=== PATIENT | male | born 1950 | race Caucasian/White ===

== ENCOUNTER → 2016-05-30 | Outpatient (CLI) | payer OTHER ==
--- NOTE | 2016-05-30 16:53 | US ---
EXAMINATION TYPE: US carotid duplex BILAT DATE OF EXAM: 05/30/2016 4:34 PM COMPARISON: Prior carotid ultrasound May 25, 2015. CLINICAL HISTORY: R93.8 abnormal carotid compare to previous. EXAM MEASUREMENTS: RIGHT: Peak Systolic Velocity (PSV) cm/sec ----- Right CCA: 176 ----- Right ICA: 77.4 ----- Right ECA: 151 ICA/CCA ratio: 0.43 RIGHT: End Diastole cm/sec ----- Right CCA: 31.4 ----- Right ICA: 21.7 ----- Right ECA: 19.9 LEFT: Peak Systolic Velocity (PSV) cm/sec ----- Left CCA: 77.6 ----- Left ICA: 93.6 ----- Left ECA: 53.6 ICA/CCA ratio: 1.2 LEFT: End Diastole cm/sec ----- Left CCA: 22.3 ----- Left ICA: 26.7 ----- Left ECA: 9.5 VERTEBRALS (direction of flow): Right Vertebral: Antegrade Left Vertebral: Antegrade Moderate plaque with no significant velocity increases seen in bilateral ICA's Grayscale images redemonstrate moderate eccentric plaque at bilateral carotid bulbs. Velocity measure ments and ratios in visualized portion of both internal carotid arteries remains within normal limits . No significant change from prior. IMPRESSION: Moderate atherosclerotic change redemonstrated bilaterally without hemodynamically signi ficant stenosis clearly seen in either internal carotid artery.
== END | disposition home or self-care (01) ==
LOC: RADUSWWP 15:46
PROVIDERS: ATTEND Otolaryngology
DX: I65.23 Occlusion and stenosis of bilateral carotid arteries (principal)
CPT/HCPCS: 93880

== ENCOUNTER → 2016-07-16 | Outpatient (CLI) | payer MEDICARE, OTHER ==
[2016-07-16 14:22] LABS: Non-African American GFR(MDRD) >60 (>60 ml/min/1.73 sqM)
--- NOTE | 2016-07-16 14:37 | XR ---
EXAMINATION TYPE: XR orbit detect foreign body DATE OF EXAM: 07/16/2016 2:32 PM COMPARISON: NONE HISTORY: 66-year-old male MRI clearance, history of metal working. TECHNIQUE: 3 views FINDINGS: There is no retained metallic foreign body seen within either orbit or within the visualized face. So me calcifications intracranially likely ideal gland calcifications. Slight leftward nasal septal belinda ation noted. IMPRESSION: No retained metal within the orbits. Clear for MRI.
--- NOTE | 2016-07-16 15:34 | MR ---
EXAMINATION TYPE: MR brain wo/w con DATE OF EXAM: 07/16/2016 3:29 PM COMPARISON: NONE HISTORY: Dizziness, hx throat ca 9 yrs ago CONTRAST: Patient received 17 mL intravenous MultiHance gadolinium contrast. Multiplanar and multispin-echo imaging of the brain was performed . Pre and post contrast enhanced i mages are obtained. The ventricles, basal cisterns and sulci overlying the cerebral convexities are moderate enlarged. There is evidence of moderate periventricular white matter ischemic demyelination. Remote deep white matter insults are also noted. No acute edema is seen on diffusion weighted imaging. There is no evidence for midline shift or mass effect. Acute intracranial hemorrhage or extra-axial collection is not evident. No enhancing lesions are seen. The paranasal sinuses and mastoid air cells are well-aerated. IMPRESSION: Age-related atrophic and chronic small vessel ischemic change. No acute intracranial process at this time. No enhancing lesions are seen.
== END | disposition home or self-care (01) ==
LOC: RADMRIMAIN 13:56
PROVIDERS: ATTEND Psychiatry & Neurology Neurology
DX: G31.9 Degenerative disease of nervous system, unspecified (principal); I67.82 Cerebral ischemia; Z13.89 Encounter for screening for other disorder
CPT/HCPCS: 82565; 70030; 70553; 36415; A9577

== ENCOUNTER 2017-05-04 10:46 | Inpatient (IN) | payer MEDICARE, OTHER ==
[2017-05-04] MEDS ORDERED: NOREPINEPHRIN 4 MG-0.9% NS PMX 4 MG/250 ML ML IV ONE (11:10)
--- NOTE | 2017-05-04 11:19 | ED ---
General Adult HPI - General Chief complaint: Cardiac Arrest/CPR Stated complaint: cardiac arrest Source: EMS, RN notes reviewed Mode of arrival: EMS Limitations: altered mental status, physical limitation - History of Present Illness Initial comments: Patient is an unresponsive 66-year-old male presenting to the emergency Department as a priority 1 by EMS. 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 Patient has had previous surgery. EMS states patient was alert when they arrived with difficulty in breathing. They did suction copious amounts, approximately 300 mL of yellow fluid from the chest. Patient does have a stoma in the upper chest. Patient was dyspneic and went into respiratory and cardiac arrest. EMS did intubate orally and state they did see the tube passing through the vocal cords however were unable to ventilate. EMS then passed another tube into the chest stoma and were able to ventilate through there. Patient had approximately 15 minutes of CPR and 3 epinephrine with return of circulation. - Related Data Home Medications Medication Instructions Recorded Confirmed Acetaminophen with Codeine 1 tab PO Q4HR PRN 05/04/17 05/04/17 [Tylenol w/codeine #4] Lactulose 10 gm PO DAILY PRN 05/04/17 05/04/17 Levothyroxine Sodium [Synthroid] 75 mcg PO DAILY 05/04/17 05/04/17 Losartan [Cozaar] 50 mg PO DAILY 05/04/17 05/04/17 Omeprazole [PriLOSEC] 20 mg PO BID 05/04/17 05/04/17 Allergies Allergy/AdvReac Type Severity Reaction Status Date / Time bee venom protein (honey bee) Allergy Anaphylaxis Verified 05/04/17 13:18 Review of Systems ROS Statement: Those systems with pertinent positive or pertinent negative responses have been documented in the HPI. ROS Other: All systems not noted in ROS Statement are negative. Limitations: ROS unobtainable due to patients medical condition Past Medical History Past Medical History: No Reported History History of Any Multi-Drug Resistant Organisms: None Reported Past Surgical History: No Surgical Hx Reported Past Psychological History: No Psychological Hx Reported Smoking Status: Unknown if ever smoked Past Alcohol Use History: None Reported Past Drug Use History: None Reported General Exam Limitations: no limitations General appearance: obtunded Head exam: Present: atraumatic Eye exam: Present: other (Pupils are constricted and nonreactive.) ENT exam: Present: other (Endotracheal tube present) Neck exam: Present: other (Evidence of previous surgery) Respiratory exam: Present: other (Equal breath sounds bilaterally with bagging insufflation. Patient does have a sternal ostomy in the upper midline with both a red tube that appears similar to a PEG tube as well as a endotracheal tube.) Cardiovascular Exam: Present: regular rate, normal rhythm Expanded Peripheral pulses: 1+: Carotid (L) GI/Abdominal exam: Present: soft. Absent: tenderness exam: Present: other (Hypospadias) Extremities exam: Present: normal inspection Neurological exam: Present: other (Nonresponsive. GCS 3.) Expanded Eye Response: (1) no response Motor Response: (1) no motor response Verbal Response: (1) no verbal response Psychiatric exam: Present: other (Nonverbal) Skin exam: Present: normal color Course Vital Signs 05/04/17 05/04/17 05/04/17 10:59 11:29 11:35 Temperature 101.2 F H Pulse Rate 103 H 100 Respiratory 16 16 16 Rate Blood Pressure 66/47 108/72 O2 Sat by Pulse 61 L Oximetry 05/04/17 05/04/17 05/04/17 11:47 11:59 12:07 Temperature Pulse Rate 100 102 H 103 H Respiratory 16 16 16 Rate Blood Pressure 105/70 120/83 113/79 O2 Sat by Pulse 75 L 72 L Oximetry 05/04/17 05/04/17 12:54 13:42 Temperature Pulse Rate 95 96 Respiratory 16 20 Rate Blood Pressure 125/84 119/80 O2 Sat by Pulse 78 L 71 L Oximetry - Reevaluation(s) Reevaluation #1: 05/04/17 11:47 Patient reevaluated. X-ray discussed with radiologist. Endotracheal tube that is in the stoma will be withdrawn. Case was discussed with [facility] physician, Dr. Kingston, who will admit for hospital call. Dr. Anderson has been paged for consult. 05/04/17 11:53 Endotracheal tube withdrawn somewhat from the stoma with large air leak. It is replaced and we will try trach tube. 05/04/17 12:02 Case was also discussed with Dr. Cash who added information. 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 Patient had tracheoesophageal puncture done at [facility] close to one year ago and tube was placed at that time. Patient was supposed go back there for follow-up and flap procedure however he does not believe the patient has done this. He does agree that proximal trach tube size 6 would likely help. He feels when patient is stabilized will need to follow-up at [facility] again. He also adds that patient does chronically aspirate when he swallows and that is the reason for tube present in the stoma. 05/04/17 12:16 Endotracheal tube withdrawn from mouth and chest stoma. Trach tube placed flexible #7 with increased bilateral breath sounds. Left side is still somewhat decreased. 05/04/17 13:12 Long discussion had with family regarding CODE STATUS. They will have a family meeting. Patient again reevaluated. 05/04/17 13:35 Further discussion with family. Case was discussed with Dr. Anderson. 05/04/17 14:21 Further discussion had with family who wants patient to be no code and comfort care. There 3 children present. They are all in agreement. They all do understand that patient will likely soon. They do want respirator removed from the patient. They do not feel patient would want this care done. EKG Findings - EKG Comments: EKG Findings:: Sinus tachycardia 108. VA 166. QRS 144. QT 374. QTC 501. Right axis. Right bundle branch block. Borderline inferior Q waves. Nonspecific ST-T. Procedures - Central Line Placement Right Femoral Consent Obtained: emergent situation (Right femoral region used secondary to abnormal chest and neck anatomy.) Time Out Performed: Yes Patient Placed on Monitor/Pulse Ox: Yes MD Prep: mask, gown, gloves Central Line Prep: Chlorhexidine scrub Central Line Lumen Inserted: triple Central Line Position: good blood return, all ports aspirated, flushed, capped, sutured in place with 3-0 nylon Dressing Applied: Tegaderm Patient Tolerated Procedure: well Complications: none - Sepsis Sepsis Focused Exam #1 Time Sepsis Criteria Met: 13:46 Sepsis Focused Exam Date: 05/04/17 Sepsis Focused Exam Time: 46 Sepsis Focused Exam Complete: Yes Vital Signs & RN Notes Reviewed: Yes Capillary Refill: > 2 Seconds: Fingers, Toes Peripheral Pulses: Weak: Radial (R), Radial (L) Skin Color: Normal for Patient Respiratory Exam: decreased breath sounds Cardiovascular Exam: tachycardia Medical Decision Making - Lab Data Result diagrams: 05/04/17 10:55 05/04/17 10:55 Lab Results 05/04/17 05/04/17 05/04/17 Range/Units 10:55 10:55 10:55 WBC 5.1 (3.8-10.6) k/uL RBC 5.56 (4.30-5.90) m/uL Hgb 18.9 H (13.0-17.5) gm/dL Hct 59.8 H (39.0-53.0) % MCV 107.6 H (80.0-100.0) fL MCH 33.9 (25.0-35.0) pg MCHC 31.5 (31.0-37.0) g/dL RDW 11.8 (11.5-15.5) % Plt Count 119 L (150-450) k/uL Neutrophils % (Manual) 26 % Band Neutrophils % 38 % Lymphocytes % (Manual) 24 % Monocytes % (Manual) 4 % Metamyelocytes % 7 % Myelocytes % 3 % Neutrophils # (Manual) 3.20 (1.3-7.7) k/uL Lymphocytes # (Manual) 1.22 (1.0-4.8) k/uL Monocytes # (Manual) 0.20 (0-1.0) k/uL Metamyelocytes # (Man) 0.36 H (0) k/uL Myelocytes # (Manual) 0.15 H (0) k/uL Nucleated RBCs 0 (0-0) /100 WBC Large Platelets Present Anisocytosis (manual) Present Macrocytosis Moderate PT (9.0-12.0) sec INR (<1.2) APTT (22.0-30.0) sec Sample Site ABG pH (7.35-7.45) ABG pCO2 (35-45) mmHg ABG pO2 (83-108) mmHg ABG HCO3 (21-25) mmol/L ABG Total CO2 (19-24) mmol/L ABG O2 Saturation (94-97) % ABG Base Excess mmol/L Jed Test FiO2 % Sodium 132 L (137-145) mmol/L Potassium 4.6 (3.5-5.1) mmol/L Chloride 86 L (98-107) mmol/L Carbon Dioxide 12 L (22-30) mmol/L Anion Gap 34 mmol/L BUN 29 H (9-20) mg/dL Creatinine 3.30 H (0.66-1.25) mg/dL Est GFR (MDRD) Af Amer 23 (>60 ml/min/1.73 sqM) Est GFR (MDRD) Non-Af 19 (>60 ml/min/1.73 sqM) Glucose 51 L (74-99) mg/dL Plasma Lactic Acid Tommy (0.7-2.0) mmol/L Calcium 9.7 (8.4-10.2) mg/dL Total Bilirubin 2.0 H (0.2-1.3) mg/dL AST 227 H (17-59) U/L ALT 143 H (21-72) U/L Alkaline Phosphatase 54 (38-126) U/L Creatine Kinase (55-170) U/L CK-MB (CK-2) 14.7 H* (0.0-2.4) ng/mL Troponin I 0.051 H* (0.000-0.034) ng/mL NT-Pro-B Natriuret Pep pg/mL Total Protein 6.8 (6.3-8.2) g/dL Albumin 3.6 (3.5-5.0) g/dL Urine Color Urine Appearance (Clear) Urine pH (5.0-8.0) Ur Specific Hankinson (1.001-1.035) Urine Protein (Negative) Urine Glucose (UA) (Negative) Urine Ketones (Negative) Urine Blood (Negative) Urine Nitrite (Negative) Urine Bilirubin (Negative) Urine Urobilinogen (<2.0) mg/dL Ur Leukocyte Esterase (Negative) Urine RBC (0-5) /hpf Urine WBC (0-5) /hpf Urine Bacteria (None) /hpf Urine Mucus (None) /hpf Urine Sperm (None) /hpf 05/04/17 05/04/17 05/04/17 Range/Units 10:55 10:55 10:55 WBC (3.8-10.6) k/uL RBC (4.30-5.90) m/uL Hgb (13.0-17.5) gm/dL Hct (39.0-53.0) % MCV (80.0-100.0) fL MCH (25.0-35.0) pg MCHC (31.0-37.0) g/dL RDW (11.5-15.5) % Plt Count (150-450) k/uL Neutrophils % (Manual) % Band Neutrophils % % Lymphocytes % (Manual) % Monocytes % (Manual) % Metamyelocytes % % Myelocytes % % Neutrophils # (Manual) (1.3-7.7) k/uL Lymphocytes # (Manual) (1.0-4.8) k/uL Monocytes # (Manual) (0-1.0) k/uL Metamyelocytes # (Man) (0) k/uL Myelocytes # (Manual) (0) k/uL Nucleated RBCs (0-0) /100 WBC Large Platelets Anisocytosis (manual) Macrocytosis PT (9.0-12.0) sec INR (<1.2) APTT (22.0-30.0) sec Sample Site ABG pH (7.35-7.45) ABG pCO2 (35-45) mmHg ABG pO2 (83-108) mmHg ABG HCO3 (21-25) mmol/L ABG Total CO2 (19-24) mmol/L ABG O2 Saturation (94-97) % ABG Base Excess mmol/L Jed Test FiO2 % Sodium (137-145) mmol/L Potassium (3.5-5.1) mmol/L Chloride (98-107) mmol/L Carbon Dioxide (22-30) mmol/L Anion Gap mmol/L BUN (9-20) mg/dL Creatinine (0.66-1.25) mg/dL Est GFR (MDRD) Af Amer (>60 ml/min/1.73 sqM) Est GFR (MDRD) Non-Af (>60 ml/min/1.73 sqM) Glucose (74-99) mg/dL Plasma Lactic Acid Tommy 16.2 H* (0.7-2.0) mmol/L Calcium (8.4-10.2) mg/dL Total Bilirubin (0.2-1.3) mg/dL AST (17-59) U/L ALT (21-72) U/L Alkaline Phosphatase (38-126) U/L Creatine Kinase 1128 H (55-170) U/L CK-MB (CK-2) (0.0-2.4) ng/mL Troponin I (0.000-0.034) ng/mL NT-Pro-B Natriuret Pep 4380 pg/mL Total Protein (6.3-8.2) g/dL Albumin (3.5-5.0) g/dL Urine Color Urine Appearance (Clear) Urine pH (5.0-8.0) Ur Specific Hankinson (1.001-1.035) Urine Protein (Negative) Urine Glucose (UA) (Negative) Urine Ketones (Negative) Urine Blood (Negative) Urine Nitrite (Negative) Urine Bilirubin (Negative) Urine Urobilinogen (<2.0) mg/dL Ur Leukocyte Esterase (Negative) Urine RBC (0-5) /hpf Urine WBC (0-5) /hpf Urine Bacteria (None) /hpf Urine Mucus (None) /hpf Urine Sperm (None) /hpf 05/04/17 05/04/17 05/04/17 Range/Units 11:45 12:40 13:09 WBC (3.8-10.6) k/uL RBC (4.30-5.90) m/uL Hgb (13.0-17.5) gm/dL Hct (39.0-53.0) % MCV (80.0-100.0) fL MCH (25.0-35.0) pg MCHC (31.0-37.0) g/dL RDW (11.5-15.5) % Plt Count (150-450) k/uL Neutrophils % (Manual) % Band Neutrophils % % Lymphocytes % (Manual) % Monocytes % (Manual) % Metamyelocytes % % Myelocytes % % Neutrophils # (Manual) (1.3-7.7) k/uL Lymphocytes # (Manual) (1.0-4.8) k/uL Monocytes # (Manual) (0-1.0) k/uL Metamyelocytes # (Man) (0) k/uL Myelocytes # (Manual) (0) k/uL Nucleated RBCs (0-0) /100 WBC Large Platelets Anisocytosis (manual) Macrocytosis PT 14.7 H (9.0-12.0) sec INR 1.6 H (<1.2) APTT 36.2 H (22.0-30.0) sec Sample Site Right Radial ABG pH <7.00 L* (7.35-7.45) ABG pCO2 79 H* (35-45) mmHg ABG pO2 206 H (83-108) mmHg ABG HCO3 15 L (21-25) mmol/L ABG Total CO2 18 L (19-24) mmol/L ABG O2 Saturation 98.7 H (94-97) % ABG Base Excess -18.1 mmol/L Jed Test Yes FiO2 100 % Sodium (137-145) mmol/L Potassium (3.5-5.1) mmol/L Chloride (98-107) mmol/L Carbon Dioxide (22-30) mmol/L Anion Gap mmol/L BUN (9-20) mg/dL Creatinine (0.66-1.25) mg/dL Est GFR (MDRD) Af Amer (>60 ml/min/1.73 sqM) Est GFR (MDRD) Non-Af (>60 ml/min/1.73 sqM) Glucose (74-99) mg/dL Plasma Lactic Acid Tommy (0.7-2.0) mmol/L Calcium (8.4-10.2) mg/dL Total Bilirubin (0.2-1.3) mg/dL AST (17-59) U/L ALT (21-72) U/L Alkaline Phosphatase (38-126) U/L Creatine Kinase (55-170) U/L CK-MB (CK-2) (0.0-2.4) ng/mL Troponin I (0.000-0.034) ng/mL NT-Pro-B Natriuret Pep pg/mL Total Protein (6.3-8.2) g/dL Albumin (3.5-5.0) g/dL Urine Color Yellow Urine Appearance Turbid (Clear) Urine pH 6.5 (5.0-8.0) Ur Specific Hankinson 1.017 (1.001-1.035) Urine Protein 2+ H (Negative) Urine Glucose (UA) Trace H (Negative) Urine Ketones 2+ H (Negative) Urine Blood Small H (Negative) Urine Nitrite Negative (Negative) Urine Bilirubin Negative (Negative) Urine Urobilinogen 2.0 (<2.0) mg/dL Ur Leukocyte Esterase Negative (Negative) Urine RBC 20 H (0-5) /hpf Urine WBC 4 (0-5) /hpf Urine Bacteria Rare H (None) /hpf Urine Mucus Rare H (None) /hpf Urine Sperm Moderate H (None) /hpf Critical Care Time Critical Care Time: Yes Total Critical Care Time: 75 Disposition Clinical Impression: Acute respiratory failure, Septic shock, Aspiration pneumonia Disposition: ADMITTED IP TO THIS HOSP Condition: Critical Decision Time: 13:35
[2017-05-04 11:29] LABS: Albumin 3.6 g/dL (3.5-5.0); Calcium 9.7 mg/dL (8.4-10.2); Potassium 4.6 mmol/L (3.5-5.1); Total Protein 6.8 g/dL (6.3-8.2)
[2017-05-04] MEDS ORDERED: PROPOFOL 1,000 MG in EMPTY BAG 1 BAG IV SCH (11:30)
[2017-05-04] MEDS ORDERED: LORazepam 2 MG/ML INJ IV PRN ×2 (11:30)
[2017-05-04] MEDS ORDERED: IPRATROPIUM-ALBUTEROL 3 ML NEB INHALATION PRN (11:30)
[2017-05-04 11:34] VITALS: TEMP 101.2
[2017-05-04 11:35] LABS: HGB 18.9 gm/dL (13.0-17.5); MCH 33.9 pg (25.0-35.0); MCHC 31.5 g/dL (31.0-37.0); MCV 107.6 fL (80.0-100.0); Macrocytosis Moderate; Mean Platelet Volume 9.1; Platelet Count 119 k/uL (150-450); RBC 5.56 m/uL (4.30-5.90); RDW 11.8 % (11.5-15.5); WBC 5.1 k/uL (3.8-10.6)
[2017-05-04 11:39] LABS: HCT 59.8 % (39.0-53.0)
[2017-05-04] MEDS ORDERED: SODIUM CHLORIDE 0.9% 500 ML IV STA (11:48)
[2017-05-04] MEDS ORDERED: SODIUM CHLORIDE 0.9% 1,000 ML IV STA ×2 (11:48)
[2017-05-04] MEDS ORDERED: PIPERACILLIN-TAZOBACTAM 3.375 GM in DEXTROSE/WATER 1 50ML.BAG IVPB STA (11:49)
--- NOTE | 2017-05-04 11:54 | XR ---
EXAMINATION TYPE: XR chest 1V portable DATE OF EXAM: 05/04/2017 COMPARISON: NONE HISTORY: Cardiac arrest, status post intubation TECHNIQUE: Single frontal view of the chest is obtained. FINDINGS: There is an endotracheal tube overlying the tracheal air column. An additional endotrachea l tube is selectively intubated in the right mainstem bronchus. An additional tubing is present overl devyn the region of the left mainstem bronchus. No evident pneumothorax or pleural effusion. Perihilar airspace disease is present. The heart is likely enlarged. There are overlying cardiac leads. Promin ent lung volume may be indicative of COPD. IMPRESSION: Correlate for congestive heart failure. Tubes as described. Case discussed with referleonel morales clinician at the time of interpretation.
[2017-05-04] MEDS ORDERED: IPRATROPIUM-ALBUTEROL 3 ML NEB INHALATION SCH (12:00)
[2017-05-04] MEDS ORDERED: NOREPINEPHRIN 16 MG-0.9%NS PMX 16 MG/250 ML ML IV ONE (12:00)
[2017-05-04 12:04] LABS: Creatine Kinase MB 14.7 ng/mL (0.0-2.4); Troponin I 0.051 ng/mL (0.000-0.034)
[2017-05-04 12:13] LABS: Appearance,Urine Turbid (Clear); Bacteria,Urine Rare /hpf; Bilirubin,Urine Negative (Negative); Blood,Urine Small (Negative); Color,Urine Yellow; Glucose,Urine (UA) Trace (Negative); Ketones,Urine 2+ (Negative); Leukocyte Esterase,Urine Negative (Negative); Mucus,Urine Rare /hpf; Nitrite,Urine Negative (Negative); PH, Urine 6.5 (5.0-8.0); Protein,Urine 2+ (Negative); RBC,Urine 20 /hpf (0-5); Specific Gravity,Urine 1.017 (1.001-1.035); Sperm,Urine Moderate /hpf; WBC,Urine 4 /hpf (0-5)
[2017-05-04] MEDS ORDERED: ACETAMINOPHEN IV (For NPO) 1,000 MG in EMPTY BAG 1 BAG IVPB STA (12:15)
[2017-05-04 12:38] LABS: Band Neutrophils % 38 %; Large Platelets Present; Lymphocytes # (M) 1.22 k/uL (1.0-4.8); Metamyelocytes # (M) 0.36 k/uL (0); Metamyelocytes % 7 %; Myelocytes # (M) 0.15 k/uL (0); Myelocytes % 3 %; Neutrophils % (M) 26 %; Nucleated Red Blood Cells 0 /100 WBC (0-0); Total Cells Counted 200
[2017-05-04 12:39] LABS: Anisocytosis (M) Present
--- NOTE | 2017-05-04 12:41 | XR ---
EXAMINATION TYPE: XR chest 1V portable DATE OF EXAM: 05/04/2017 COMPARISON: Prior chest x-ray same date earlier time HISTORY: Interval endotracheal tube replacement TECHNIQUE: Single frontal view of the chest is obtained. FINDINGS: Left mainstem bronchus catheter is again noted. The other 2 endotracheal tubes have been r emoved. Replacement endotracheal tube is overlying the tracheal air column in appropriate position. S urgical clips present over the right neck. No evident pneumothorax. Parenchymal changes within the elana ngs, heart size likely stable accounting for differences in technique. IMPRESSION: Interval reintubation as described. Tubes as described.
[2017-05-04 12:47] LABS: ABG Base Excess -18.1 mmol/L; ABG HCO3 15 mmol/L (21-25); ABG Oxygen Saturation 98.7 % (94-97); ABG PO2 206 mmHg (83-108); ABG TCO2 18 mmol/L (19-24)
[2017-05-04 12:54] LABS: ABG PCO2 79 mmHg (35-45); ABG PH <7.00 (7.35-7.45)
[2017-05-04] MEDS ORDERED: NALOXONE 0.4 MG/ML 1 ML VIAL IV PRN (13:36)
[2017-05-04] MEDS ORDERED: LEVOFLOXACIN 750MG-D5W PMX 750 MG in DEXTROSE/WATER 1 150ML.BAG IVPB STA (13:36)
[2017-05-04] MEDS ORDERED: PNEUMONIA PROTOCOL UTILIZED 1 EACH MISC PO PRN (13:36)
[2017-05-04 13:38] LABS: INR 1.6 (<1.2); Partial Thromboplastin Time 36.2 sec (22.0-30.0); Prothrombin Time 14.7 sec (9.0-12.0)
[2017-05-04 13:43] VITALS: BP 119/80; PULSE 96; RESP 20
[2017-05-04] MEDS ORDERED: SODIUM CHLORIDE 0.9% 1,000 ML IV SCH ×2 (13:45)
[2017-05-04] MEDS ORDERED: ONDANSETRON 4 MG/2 ML VIAL IVP PRN (14:27)
[2017-05-04] MEDS ORDERED: MORPHINE SULFATE 4 MG/ML SYRINGE IV PRN ×2 (14:27)
--- NOTE | 2017-05-04 15:09 | P.HPIM ---
History of Present Illness H&P Date: 05/04/17 Chief Complaint: Cadiopulmonary arrest 66-year-old male who has known history of epiglottic cancer with prior tracheoesophageal puncture done through [facility], tube placed at that time about one year ago with plans for follow-up and flat procedure which does not appear to have been done. Patient brought in by EMS intubated, upon EMS arrival patient was a week however has been difficulty in breathing, suction copious amount of yellow-looking fluid from the chest. [facility] was there, patient went into respiratory arrest and cardiac arrest. EMS intubated orally however was unable to ventilate, eventually able to eventually do after intubating through the stoma. Patient underwent 2 minutes of CPR with 3 rounds of epinephrine and eventual return of spontaneous circulation. While in the ED , noted air leak; endotracheal tube withdrawn, trach tube placed. Lab work showed hemoglobin of 18.9, hematocrit 59.8, creatinine kinase 1128, proBNP 4380. pH<7.0, pCO2 79, HCO3 15. Lactic acid 16.2, creatinine 3.3 Review of Systems ROS unobtainable: due to endotracheal tube Past Medical History Past Medical History: No Reported History, Unable to Obtain (Patient is intubated, sedated), Hypertension Additional Past Medical History / Comment(s): Epiglottic cancer History of Any Multi-Drug Resistant Organisms: None Reported Past Surgical History: No Surgical Hx Reported, Unable to Obtain (Intubated, sedated) Additional Past Surgical History / Comment(s): Tracheoesophageal puncture Past Psychological History: No Psychological Hx Reported, Unable to Obtain ( Intubated, sedated) Smoking Status: Unknown if ever smoked Past Alcohol Use History: None Reported, Unable to Obtain (Intubated, sedated) Past Drug Use History: None Reported, Unable to Obtain (Intubated, sedated) - Past Family History Father Family Medical History: Unable to Obtain Medications and Allergies Home Medications Medication Instructions Recorded Confirmed Type Acetaminophen with Codeine 1 tab PO Q4HR PRN 05/04/17 05/04/17 History [Tylenol w/codeine #4] Lactulose 10 gm PO DAILY PRN 05/04/17 05/04/17 History Levothyroxine Sodium [Synthroid] 75 mcg PO DAILY 02/26/18 02/26/18 History Losartan [Cozaar] 50 mg PO DAILY 05/04/17 05/04/17 History Omeprazole [PriLOSEC] 20 mg PO BID 05/04/17 05/04/17 History Allergies Allergy/AdvReac Type Severity Reaction Status Date / Time bee venom protein (honey bee) Allergy Anaphylaxis Verified 05/04/17 13:18 Physical Exam Vitals: Vital Signs Temp Pulse Resp BP Pulse Ox 05/04/17 13:42 96 20 119/80 71 L 05/04/17 12:54 95 16 125/84 78 L 05/04/17 12:07 103 H 16 113/79 05/04/17 11:59 102 H 16 120/83 72 L 05/04/17 11:47 100 16 105/70 75 L 05/04/17 11:35 16 05/04/17 11:29 101.2 F H 100 16 108/72 61 L 05/04/17 10:59 103 H 16 66/47 Intake and Output 05/03/17 05/04/17 05/04/17 22:59 06:59 14:59 Other: Weight 77.564 kg Patient Weight 05/05/17 06:59 Weight 77.564 kg GENERAL: Sedated, intubated, nonarrousable HEENT: Normocephalic and atraumatic. Pupils are equal, round NECK: Supple LUNGS: Intubated. Bilateral air entry, no noted wheeze HEART: S1 and S2 of normal intensity, no appreciated murmurs ABDOMEN: Soft, nontender, and nondistended EXTREMITIES: No noted edema. NEUROLOGIC: Sedated. Not withdrawing to pain PSYCHIATRIC: Unable to assess SKIN: No ulceration noted Results CBC & Chem 7: 05/04/17 10:55 05/04/17 10:55 Labs: Abnormal Lab Results - Last 24 Hours (Table) 05/04/17 05/04/17 05/04/17 Range/Units 10:55 10:55 10:55 Hgb 18.9 H (13.0-17.5) gm/dL Hct 59.8 H (39.0-53.0) % MCV 107.6 H (80.0-100.0) fL Plt Count 119 L (150-450) k/uL Metamyelocytes # (Man) 0.36 H (0) k/uL Myelocytes # (Manual) 0.15 H (0) k/uL PT (9.0-12.0) sec INR (<1.2) APTT (22.0-30.0) sec ABG pH (7.35-7.45) ABG pCO2 (35-45) mmHg ABG pO2 (83-108) mmHg ABG HCO3 (21-25) mmol/L ABG Total CO2 (19-24) mmol/L ABG O2 Saturation (94-97) % Sodium 132 L (137-145) mmol/L Chloride 86 L (98-107) mmol/L Carbon Dioxide 12 L (22-30) mmol/L BUN 29 H (9-20) mg/dL Creatinine 3.30 H (0.66-1.25) mg/dL Glucose 51 L (74-99) mg/dL Plasma Lactic Acid Tommy (0.7-2.0) mmol/L Total Bilirubin 2.0 H (0.2-1.3) mg/dL AST 227 H (17-59) U/L ALT 143 H (21-72) U/L Creatine Kinase (55-170) U/L CK-MB (CK-2) 14.7 H* (0.0-2.4) ng/mL Troponin I 0.051 H* (0.000-0.034) ng/mL Urine Protein (Negative) Urine Glucose (UA) (Negative) Urine Ketones (Negative) Urine Blood (Negative) Urine RBC (0-5) /hpf Urine Bacteria (None) /hpf Urine Mucus (None) /hpf Urine Sperm (None) /hpf 05/04/17 05/04/17 05/04/17 Range/Units 10:55 10:55 11:45 Hgb (13.0-17.5) gm/dL Hct (39.0-53.0) % MCV (80.0-100.0) fL Plt Count (150-450) k/uL Metamyelocytes # (Man) (0) k/uL Myelocytes # (Manual) (0) k/uL PT (9.0-12.0) sec INR (<1.2) APTT (22.0-30.0) sec ABG pH (7.35-7.45) ABG pCO2 (35-45) mmHg ABG pO2 (83-108) mmHg ABG HCO3 (21-25) mmol/L ABG Total CO2 (19-24) mmol/L ABG O2 Saturation (94-97) % Sodium (137-145) mmol/L Chloride (98-107) mmol/L Carbon Dioxide (22-30) mmol/L BUN (9-20) mg/dL Creatinine (0.66-1.25) mg/dL Glucose (74-99) mg/dL Plasma Lactic Acid Tommy 16.2 H* (0.7-2.0) mmol/L Total Bilirubin (0.2-1.3) mg/dL AST (17-59) U/L ALT (21-72) U/L Creatine Kinase 1128 H (55-170) U/L CK-MB (CK-2) (0.0-2.4) ng/mL Troponin I (0.000-0.034) ng/mL Urine Protein 2+ H (Negative) Urine Glucose (UA) Trace H (Negative) Urine Ketones 2+ H (Negative) Urine Blood Small H (Negative) Urine RBC 20 H (0-5) /hpf Urine Bacteria Rare H (None) /hpf Urine Mucus Rare H (None) /hpf Urine Sperm Moderate H (None) /hpf 05/04/17 05/04/17 Range/Units 12:40 13:09 Hgb (13.0-17.5) gm/dL Hct (39.0-53.0) % MCV (80.0-100.0) fL Plt Count (150-450) k/uL Metamyelocytes # (Man) (0) k/uL Myelocytes # (Manual) (0) k/uL PT 14.7 H (9.0-12.0) sec INR 1.6 H (<1.2) APTT 36.2 H (22.0-30.0) sec ABG pH <7.00 L* (7.35-7.45) ABG pCO2 79 H* (35-45) mmHg ABG pO2 206 H (83-108) mmHg ABG HCO3 15 L (21-25) mmol/L ABG Total CO2 18 L (19-24) mmol/L ABG O2 Saturation 98.7 H (94-97) % Sodium (137-145) mmol/L Chloride (98-107) mmol/L Carbon Dioxide (22-30) mmol/L BUN (9-20) mg/dL Creatinine (0.66-1.25) mg/dL Glucose (74-99) mg/dL Plasma Lactic Acid Tommy (0.7-2.0) mmol/L Total Bilirubin (0.2-1.3) mg/dL AST (17-59) U/L ALT (21-72) U/L Creatine Kinase (55-170) U/L CK-MB (CK-2) (0.0-2.4) ng/mL Troponin I (0.000-0.034) ng/mL Urine Protein (Negative) Urine Glucose (UA) (Negative) Urine Ketones (Negative) Urine Blood (Negative) Urine RBC (0-5) /hpf Urine Bacteria (None) /hpf Urine Mucus (None) /hpf Urine Sperm (None) /hpf Assessment and Plan (1) Cardiopulmonary arrest with successful resuscitation Current Visit: Yes Status: Acute Code(s): I46.9 - CARDIAC ARREST, CAUSE UNSPECIFIED SNOMED Code(s): 656622040 (2) Acute respiratory failure with hypoxia and hypercapnia Current Visit: Yes Status: Acute Code(s): J96.01 - ACUTE RESPIRATORY FAILURE WITH HYPOXIA; J96.02 - ACUTE RESPIRATORY FAILURE WITH HYPERCAPNIA SNOMED Code(s): 40542906 (3) Septic shock Current Visit: Yes Status: Acute Code(s): A41.9 - SEPSIS, UNSPECIFIED ORGANISM; R65.21 - SEVERE SEPSIS WITH SEPTIC SHOCK SNOMED Code(s): 34326034 (4) Acidosis, metabolic, with respiratory acidosis Current Visit: Yes Status: Acute Code(s): E87.4 - MIXED DISORDER OF ACID- BASE BALANCE SNOMED Code(s): 53583003 (5) Lactic acidosis Current Visit: Yes Status: Acute Code(s): E87.2 - ACIDOSIS SNOMED Code(s) : 52885718 (6) Acute kidney injury Current Visit: Yes Status: Acute Code(s): N17.9 - ACUTE KIDNEY FAILURE, UNSPECIFIED SNOMED Code(s): 97965308 (7) Polycythemia Current Visit: Yes Status: Acute Code(s): D75.1 - SECONDARY POLYCYTHEMIA SNOMED Code(s): 068016783 Plan: Patient is critically ill with poor prognosis. Intubated by EMS after cardiopulmonary recussitation lasting 15 minutes and required multiple rounds of epinephrine. Very significantly elevated lactic acid 16.2, very acidotic with a pH less than 7.0. Anoxic brain injury from prolonged respiratory arrest. Started on levophed, IVF recussitation, broad-spectrum antibiotics to cover for a possible septic cause without a clear source however patient critically ill. Critical care physician consulted. While writing this note, notified that family has appropriately chosen comfort measures, and that the patient was extubated. Shortly thereafter and still while writing this note, notified that the patient had .
[2017-05-04] MEDS ORDERED: PIPERACILLIN-TAZOBACTAM 3.375 GM in DEXTROSE/WATER 1 50ML.BAG IVPB SCH (20:00)
[2017-05-05] MEDS ORDERED: LEVOTHYROXINE 75 MCG TAB PO SCH (06:30)
[2017-05-05] MEDS ORDERED: PANTOPRAZOLE 40 MG/10 ML VIAL IV SCH (09:00)
[2017-05-05] MEDS ORDERED: LEVOFLOXACIN 750MG-D5W PMX 750 MG in DEXTROSE/WATER 1 150ML.BAG IVPB SCH (18:00)
[2017-05-06] MEDS ORDERED: LEVOFLOXACIN 750MG-D5W PMX 750 MG in DEXTROSE/WATER 1 150ML.BAG IVPB SCH (09:00)
--- NOTE | 2017-05-11 08:50 | CDI ---
Last Revision, February 2017 Documentation Clarification Form Date: 05/11/2017 8:40:00 AM From: Nan Levi Marie Villalba, [employer] Agent between 8:30 am & 5 pm Roselia Admit Date: 05/04/2017 1:36:00 PM Patient Name: Vishal Rico Visit Number: [id number] Discharge Date: 05/04/17 ATTENTION: The Clinical Documentation Specialists (CDI) and [facility] Coding Staff appreciate your assistance in clarifying documentation. Please respond to the clarification below the line at the bottom and electronically sign. The CDI & [facility] Coding staff will review the response and follow-up if needed. Please note: Queries are made part of the Legal Health Record. If you have any questions, please contact the author of this message via ITS. Dr. Liam Vann Patient presented in cardiorespiratory arrest and trach tube placed in existing stoma and ventilated. Patient with history of epiglottic cancer now in septic shock, acute hypoxic/ hypercapnia respiratory failure, brain anoxia and acute renal failure. Following family discussion decided on no code and comfort care. In your professional opinion, please specify the cause of . Please specify Unable to determine Please continue to document in your progress notes and discharge summary in order to capture severity of illness and risk of mortality. Include clinical findings that support your diagnosis. MTDD
== END 2017-05-04 14:55 | disposition expired | DRG 871 ==
LOC: EC 10:56 → 6ICU 13:36 → 5ONC 14:33
PROVIDERS: ADMIT Internal Medicine; ATTEND Internal Medicine
PROC: 5A12012 Performance of Cardiac Output, Single, Manual (ICD-10-PCS; principal; 2017-05-04)
PROC: 5A1935Z Respiratory Ventilation, Less than 24 Consecutive Hours (ICD-10-PCS; 2017-05-04)
PROC: 06HM33Z Insertion of Infusion Device into Right Femoral Vein, Percutaneous Approach (ICD-10-PCS; 2017-05-04)
PROC: 0B21XFZ Change Tracheostomy Device in Trachea, External Approach (ICD-10-PCS; 2017-05-04)
PROC: 0D9670Z Drainage of Stomach with Drainage Device, Via Natural or Artificial Opening (ICD-10-PCS; 2017-05-04)
DX: A41.9 Sepsis, unspecified organism (principal); R65.21 Severe sepsis with septic shock; I46.9 Cardiac arrest, cause unspecified; R40.2112 Coma scale, eyes open, never, at arrival to emergency department; J69.0 Pneumonitis due to inhalation of food and vomit; J96.01 Acute respiratory failure with hypoxia; J96.02 Acute respiratory failure with hypercapnia; R40.2212 Coma scale, best verbal response, none, at arrival to emergency department; G93.1 Anoxic brain damage, not elsewhere classified; E87.2 Acidosis; D75.1 Secondary polycythemia; R40.2312 Coma scale, best motor response, none, at arrival to emergency department; N17.9 Acute kidney failure, unspecified; J93.82 Other air leak; Z51.5 Encounter for palliative care; Z66 Do not resuscitate; I10 Essential (primary) hypertension; Q54.9 Hypospadias, unspecified; Z79.899 Other long term (current) drug therapy; Z85.818 Personal history of malignant neoplasm of other sites of lip, oral cavity, and pharynx; Z91.030 Bee allergy status
CPT/HCPCS: 31500; 36415; 36556; 36600; 71045; 80053; 81001; 82550; 82553; 82805; 83605; 83880; 84484; 85025; 85610; 85730; 87040; 87086; 93005; 94002; 96365; 96366; 96368; 96375; 99291; 99292